=== PATIENT | male | born 1970 | race Caucasian/White ===

== ENCOUNTER 2019-07-02 08:03 | Inpatient (IN) | payer BC, OTHER ==
[2019-07-02 08:31] VITALS: BMI 26.7
--- NOTE | 2019-07-02 09:20 | BHS.RME ---
Substance Use & Tx History - Substance Use History Alcohol Frequency of use: Daily Substance route: Oral Date of Last Use: 07/02/19 - Last Treatment Date of last treatment: 1st time Treatment type: Medical Where was last treatment: Detox Physical/Psych/Mental Status - Behavior General Behavior: Increased activity (restlessness, agitation) Eye Contact: Normal - Cooperativeness Cooperativeness: Cooperative - Thinking Thought Processes: Goal Directed Thought content: Future oriented - Physical Health Problems Is patient presently having any pain?: Yes Does patient presently have any injuries (include location): No Does patient currently have a fever: No Is patient : No (NA) CIWA Nausea/Vomitin Muscle Tremors: 2 Anxiety: 2 Agitation: 2 Paroxysmal Sweats: 1-Minimal Palms Moist Orientation: 0-Oriented Tacttile Disturbances: 2-Mild Itch/Numbness/Burn Auditory Disturbances: 0-None Visual Disturbances: 0-None Headache: 2-Mild CIWA-Ar Total Score: 13 Treatment Recommendation - Level of Care Level of Care: Acute Medical
--- NOTE | 2019-07-02 09:24 | HP ---
CIWA Score Nausea/Vomitin Muscle Tremors: 2 Anxiety: 2 Agitation: 2 Paroxysmal Sweats: 1-Minimal Palms Moist Orientation: 0-Oriented Tacttile Disturbances: 2-Mild Itch/Numbness/Burn Auditory Disturbances: 0-None Visual Disturbances: 0-None Headache: 2-Mild CIWA-Ar Total Score: 13 - Admission Criteria OASAS Guidelines: Admission for Medically Managed Detox: Requires at least one of the followin. CIWA greater than 12 2. Seizures within the past 24 hours 3. Delirium tremens within the past 24 hours 4. Hallucinations within the past 24 hours 5. Acute intervention needed for co occurring medical disorder 6. Acute intervention needed for co occurring psychiatric disorder 7. Severe withdrawal that cannot be handled at a lower level of care (continued vomiting, continued diarrhea, abnormal vital signs) requiring intravenous medication and/or fluids 8. Patient presents the following: CIWA greater than 12 Admission Criteria Met: Admission criteria met Admitting History and Physical - Smoking History Smoking history: Current every day smoker Have you smoked in the past 12 months: Yes Aproximately how many cigarettes per day: 10 Admission ROS [facility] Chief Complaint: I need help Allergies/Adverse Reactions: Allergies Allergy/AdvReac Type Severity Reaction Status Date / Time shellfish derived Allergy Severe Difficulty Verified 07/02/19 08:25 Breathing levofloxacin [From Levaquin] AdvReac Nausea Verified 07/02/19 08:23 History of Present Illness: 49 year old man with alcohol withdrawal presents for detox, this is his first time in detox. He denies seizure, reports blackouts related to alcohol, last event a week ago. Patient was seen in the ED at [facility] early yesterday morning following his doctor's directions for withdrawal sxs and abnormal labs ( elevated LFTs). He had initially presented to his PCP with c/o chest pain. While at [facility], he had EKG, results unknown, he did not receive any benzos, he was referred to [facility] for detox. Discharge summary does not include ED course. He continues to report pin-like pain to the chest, will obtain baseline EKG. Patient has chronic HTN, he reports medication non-adherence, admission BP 158/98 Exam Limitations: No Limitations - Ebola screening Have you traveled outside of the country in the last 21 days: No Have you had contact with anyone from an Ebola affected area: No Have you been sick,other than usual withdrawal symptoms: No Do you have a fever: No - Review of Systems Constitutional: Changes in sleep EENT: reports: No Symptoms Reported Respiratory: reports: Cough (on and off) Cardiac: reports: No Symptoms Reported GI: reports: Nausea, Poor Fluid Intake : reports: No Symptoms Reported Musculoskeletal: reports: Back Pain, Muscle Pain Integumentary: reports: Sweating Neuro: reports: Headache, Numbness, Tingling, Tremors Endocrine: reports: No Symptoms Reported Hematology: reports: No Symptoms Reported Psychiatric: reports: Anxious Other Systems: Reviewed and Negative Patient History - Patient Medical History Hx Anemia: No Hx Asthma: Yes Hx Chronic Obstructive Pulmonary Disease (COPD): No Hx Cancer: No Hx Cardiac Disorders: No Hx Congestive Heart Failure: No Hx Hypertension: Yes Hx Hypercholesterolemia: Yes Hx Pacemaker: No HX Cerebrovascular Accident: No Hx Seizures: No Hx Diabetes: No Hx Gastrointestinal Disorders: No Hx Liver Disease: Yes Hx Genitourinary Disorders: No Hx Sexually Transmitted Disorders: Yes (herpes) Hx Renal Disease (ESRD): No Hx Thyroid Disease: No Hx Human Immunodeficiency Virus (HIV): No Hx Hepatitis C: No Hx Depression: No Hx Suicide Attempt: No Hx Bipolar Disorder: No Hx Schizophrenia: No - Patient Surgical History Past Surgical History: Yes Hx Neurologic Surgery: No Hx Cataract Extraction: No Hx Cardiac Surgery: No Hx Lung Surgery: No Hx Breast Surgery: No Hx Breast Biopsy: No Hx Abdominal Surgery: No Hx Appendectomy: No Hx Cholecystectomy: No Hx Genitourinary Surgery: No Hx Section: No Hx Orthopedic Surgery: Yes (L knee arthroscopic-torn R meniscus) Anesthesia Reaction: No - PPD History Previous Implant?: No Documented Results: Negative w/o proof Implanted On Prior R Admission?: No PPD to be Administered?: Yes - Smoking Cessation Smoking history: Current every day smoker Have you smoked in the past 12 months: Yes Aproximately how many cigarettes per day: 10 Hx Chewing Tobacco Use: No Initiated information on smoking cessation: Yes 'Breaking Loose' booklet given: 07/02/19 - Substances abused Alcohol Other (specify): vodka and beer Substance route: Oral Frequency: Daily Amount used: 1/2 liter vodka/(5) 12oz beers Age of first use: 17 Date of last use: 07/02/19 Admission Physical Exam BHS - Vital Signs Vital Signs: Vital Signs - 24 hr 07/02/19 08:16 Temperature 97.6 F Pulse Rate 77 Respiratory 16 Rate Blood Pressure 158/98 - Physical General Appearance: Yes: Appropriately Dressed HEENTM: Yes: Hearing grossly Normal, Normal ENT Inspection, Normocephalic, Normal Voice, Pharynx Normal Respiratory: Yes: Chest Non-Tender, Lungs Clear, Normal Breath Sounds, No Respiratory Distress, No Accessory Muscle Use Neck: Yes: No masses,lesions,Nodules, Supple Breast: Yes: Breast Exam Deferred Cardiology: Yes: Regular Rhythm, Regular Rate, S1, S2 Abdominal: Yes: Normal Bowel Sounds, Non Tender, Soft Genitourinary: Yes: Within Normal Limits Back: Yes: Normal Inspection Musculoskeletal: Yes: full range of Motion, Gait Steady, Pelvis Stable Extremities: Yes: Tremors Neurological: Yes: field foreman II-XII NML intact, Fully Oriented, Alert, Motor Strength 5/5, Normal Mood/Affect, Normal Response Integumentary: Yes: Moist, Rash (chronic) Lymphatic: Yes: Within Normal Limits - Diagnostic (1) Alcohol dependence, uncomplicated Current Visit: Yes Status: Acute (2) HTN (hypertension) Current Visit: Yes Status: Acute Qualifiers: Hypertension type: essential hypertension Qualified Code(s): I10 - Essential (primary) hypertension (3) Hyperlipidemia Current Visit: Yes Status: Acute Qualifiers: Hyperlipidemia type: other hyperlipidemia Qualified Code(s): E78.49 - Other hyperlipidemia; E78.4 - Other hyperlipidemia (4) Nicotine dependence Current Visit: Yes Status: Acute Qualifiers: Nicotine product type: cigarettes Substance use status: uncomplicated Qualified Code(s): F17.210 - Nicotine dependence, cigarettes, uncomplicated (5) Low back pain Current Visit: Yes Status: Acute Qualifiers: Chronicity: chronic Back pain laterality: bilateral Sciatica presence: without sciatica Qualified Code(s): M54.5 - Low back pain; G89.29 - Other chronic pain Cleared for Admission [facility] - Detox or Rehab [facility] Level of Care: Medically Managed Detox Regimen/Protocol: Librium Claeared for Rehab Admission: No Breathalyzer - Breathalyzer Breathalyzer: 0.21 Urine Drug Screen - Test Device Lot number: [id number] Expiration date: 03/25/21 - Control Is test valid?: Yes - Results Drug screen NEGATIVE: Yes Inpatient Rehab Admission - Rehab Decision to Admit Inpatient rehab admission?: No
[2019-07-02] MEDS ORDERED: NICOTINE POLACRILEX 2 MG GUM BUC PRN (09:45)
[2019-07-02] MEDS ORDERED: MENTHOL/PHENOL 1 EACH UD MM PRN (09:45)
[2019-07-02] MEDS ORDERED: MAG HYDROX/AL HYDROX/SIMETH 30 ML UNIT-DOSE CUP PO PRN (09:45)
[2019-07-02] MEDS ORDERED: METHOCARBAMOL 500 MG TABLET PO PRN (09:45)
[2019-07-02] MEDS ORDERED: MAGNESIUM HYDROX 2400MG/30ML ORAL SUSPENSION 30 ML CUP PO PRN (09:45)
[2019-07-02] MEDS ORDERED: chlordiazePOXIDE HCL 10 MG CAPSULE PO PRN (09:45)
[2019-07-02] MEDS ORDERED: ONDANSETRON *ODT* 4 MG TABLET SL ONE (09:45)
[2019-07-02] MEDS ORDERED: MAGNESIUM CITRATE 300 ML BOTTLE PO PRN (09:45)
[2019-07-02] MEDS ORDERED: ACETAMINOPHEN 325 MG TABLET (FP) PO PRN ×2 (09:45)
[2019-07-02] MEDS ORDERED: BISMUTH SUBSALICYLATE 524 MG/30 ML UD PO PRN (09:45)
[2019-07-02] MEDS ORDERED: IBUPROFEN 400 MG TABLET (FP) PO PRN (09:45)
[2019-07-02] MEDS ORDERED: MOMETASONE FUROATE 220 MCG IH SCH ×2 (10:00→22:00)
[2019-07-02] MEDS: chlordiazePOXIDE HCL 25 MG CAPSULE PO SCH ×2 (13:08→22:55)
[2019-07-02] MEDS: hydrOXYzine PAMOATE 25 MG CAPSULE (FP) PO SCH ×4 (13:09→22:55)
[2019-07-02] MEDS: NICOTINE 14 MG/24 HOURS TOPICAL PATCH TD SCH (13:10)
[2019-07-02] MEDS: PRENATAL VITAMINS W/ FOLIC ACID TABLET (FP) PO SCH (13:11)
[2019-07-02] MEDS: MELATONIN 5 MG TABLETS PO SCH (22:55)
[2019-07-02] MEDS: THIAMINE HCL 100 MG TABLET (FP) PO SCH (22:55)
[2019-07-03] MEDS: hydrOXYzine PAMOATE 25 MG CAPSULE (FP) PO SCH ×5 (05:40→22:37)
[2019-07-03] MEDS: chlordiazePOXIDE HCL 25 MG CAPSULE PO SCH ×3 (05:40→22:36)
--- NOTE | 2019-07-03 09:40 | EKG ---
Test Reason : Blood Pressure : / mmHG Vent. Rate : 071 BPM Atrial Rate : 071 BPM P-R Int : 150 ms QRS Dur : 082 ms QT Int : 404 ms P-R-T Axes : 051 044 075 degrees QTc Int : 439 ms NORMAL SINUS RHYTHM NORMAL ECG NO PREVIOUS ECGS AVAILABLE Confirmed by Kyaw Arceo ([id number]) on 07/03/2019 9:39:59 AM Referred By: CAROLE CHOWDARY Confirmed By:Kyaw Arceo
[2019-07-03] MEDS: NICOTINE 14 MG/24 HOURS TOPICAL PATCH TD SCH (10:23)
[2019-07-03] MEDS: PRENATAL VITAMINS W/ FOLIC ACID TABLET (FP) PO SCH (10:23)
[2019-07-03 10:24] LABS: HEMATOCRIT 45.4 % (35.4-49); HEMOGLOBIN 15.4 GM/dL (11.7-16.9); MCH 33.8 pg (25.7-33.7); MEAN CELL VOLUME 99.5 fl (80-96); MEAN PLT VOLUME 8.1 fl (7.5-11.1); PLATELET COUNT 226 K/MM3 (134-434); RBC 4.56 M/mm3 (4.00-5.60); RDW 12.9 % (11.9-15.9); WHITE BLOOD COUNT 4.6 K/mm3 (4.0-10.0)
[2019-07-03 10:35] LABS: ALBUMIN 3.4 g/dl (3.4-5.0); BILIRUBIN,TOTAL 1.4 mg/dL (0.2-1); BLOOD UREA NITROGEN 17.5 mg/dL (7-18); CALCIUM 9.3 mg/dL (8.5-10.1); CREATININE 0.8 mg/dL (0.55-1.3); POTASSIUM 3.9 mmol/L (3.5-5.1); TOT PROT 6.7 g/dl (6.4-8.2)
--- NOTE | 2019-07-03 12:00 | PN ---
[facility] CIWA - CIWA Score Nausea/Vomitin-No Nausea/No Vomiting Muscle Tremors: 3 Anxiety: 4-Mod. Anxious/Guarded Agitation: 1-Slight > Activity Paroxysmal Sweats: 2 Orientation: 0-Oriented Tacttile Disturbances: 0-None Auditory Disturbances: 0-None Visual Disturbances: 1-Very Mild Sensitivity Headache: 0-None Present CIWA-Ar Total Score: 11 S Progress Note (SOAP) Subjective: 49 years old male admitted on 07/02/19 for alcohol withdrawal sx management treating with librium detox regiment reports trouble move bowel today MOM 30ml x 1 Objective: 07/03/19 12:03 Vital Signs Temperature 96.6 F L 07/03/19 08:54 Pulse Rate 72 07/03/19 08:54 Respiratory Rate 18 07/03/19 08:54 Blood Pressure 132/88 07/03/19 08:54 O2 Sat by Pulse Oximetry (%) Laboratory Last Values WBC 4.6 K/mm3 (4.0-10.0) 07/03/19 07:50 RBC 4.56 M/mm3 (4.00-5.60) 07/03/19 07:50 Hgb 15.4 GM/dL (11.7-16.9) 07/03/19 07:50 Hct 45.4 % (35.4-49) 07/03/19 07:50 MCV 99.5 fl (80-96) H 07/03/19 07:50 MCH 33.8 pg (25.7-33.7) H 07/03/19 07:50 MCHC 34.0 g/dl (32.0-35.9) 07/03/19 07:50 RDW 12.9 % (11.9-15.9) 07/03/19 07:50 Plt Count 226 K/MM3 (134-434) 07/03/19 07:50 MPV 8.1 fl (7.5-11.1) 07/03/19 07:50 Sodium 139 mmol/L (136-145) 07/03/19 07:50 Potassium 3.9 mmol/L (3.5-5.1) 07/03/19 07:50 Chloride 103 mmol/L (98-107) 07/03/19 07:50 Carbon Dioxide 29 mmol/L (21-32) 07/03/19 07:50 Anion Gap 7 MMOL/L (8-16) L 07/03/19 07:50 BUN 17.5 mg/dL (7-18) 07/03/19 07:50 Creatinine 0.8 mg/dL (0.55-1.3) 07/03/19 07:50 Est GFR (CKD-EPI)AfAm 120.72 07/03/19 07:50 Est GFR (CKD-EPI)NonAf 104.16 07/03/19 07:50 Random Glucose 114 mg/dL (74-106) H 07/03/19 07:50 Calcium 9.3 mg/dL (8.5-10.1) 07/03/19 07:50 Total Bilirubin 1.4 mg/dL (0.2-1) H 07/03/19 07:50 AST 85 U/L (15-37) H 07/03/19 07:50 ALT 124 U/L (13-61) H 07/03/19 07:50 Alkaline Phosphatase 64 U/L (45-117) 07/03/19 07:50 Total Protein 6.7 g/dl (6.4-8.2) 07/03/19 07:50 Albumin 3.4 g/dl (3.4-5.0) 07/03/19 07:50 RPR Titer Nonreactive (NONREACTIVE) 07/03/19 07:50 lab noted Assessment: 07/03/19 13:29 alcohol withdrawal Plan: librium regiment
[2019-07-03] MEDS ORDERED: MAGNESIUM HYDROX 2400MG/30ML ORAL SUSPENSION 30 ML CUP PO ONE (12:02)
[2019-07-03] MEDS: MELATONIN 5 MG TABLETS PO SCH (22:37)
[2019-07-03] MEDS: THIAMINE HCL 100 MG TABLET (FP) PO SCH (22:37)
[2019-07-03] MEDS: MOMETASONE FUROATE 220 MCG/IH INHALER IH SCH (22:38)
[2019-07-04] MEDS: hydrOXYzine PAMOATE 25 MG CAPSULE (FP) PO SCH ×5 (05:25→21:49)
[2019-07-04] MEDS: chlordiazePOXIDE 5 MG CAPSULE PO SCH ×3 (05:25→21:49)
[2019-07-04] MEDS: PRENATAL VITAMINS W/ FOLIC ACID TABLET (FP) PO SCH (10:06)
[2019-07-04] MEDS: NICOTINE 14 MG/24 HOURS TOPICAL PATCH TD SCH (10:06)
--- NOTE | 2019-07-04 10:41 | PN ---
[facility] CIWA - CIWA Score Nausea/Vomitin-No Nausea/No Vomiting Muscle Tremors: 3 Anxiety: 3 Agitation: 0-Normal Activity Paroxysmal Sweats: 1-Minimal Palms Moist Orientation: 0-Oriented Tacttile Disturbances: 0-None Auditory Disturbances: 0-None Visual Disturbances: 2-Mild Sensitivity Headache: 0-None Present CIWA-Ar Total Score: 9 S Progress Note (SOAP) Subjective: 49 years old male admitted on 07/02/19 for alcohol withdrawal sx management treating with librium detox regiment difficulty move bowel agrees to take citroma Objective: 07/04/19 10:50 Vital Signs Temperature 98.1 F 07/04/19 08:32 Pulse Rate 69 07/04/19 08:32 Respiratory Rate 18 07/04/19 08:32 Blood Pressure 136/80 07/04/19 08:32 O2 Sat by Pulse Oximetry (%) Laboratory Last Values WBC 4.6 K/mm3 (4.0-10.0) 07/03/19 07:50 RBC 4.56 M/mm3 (4.00-5.60) 07/03/19 07:50 Hgb 15.4 GM/dL (11.7-16.9) 07/03/19 07:50 Hct 45.4 % (35.4-49) 07/03/19 07:50 MCV 99.5 fl (80-96) H 07/03/19 07:50 MCH 33.8 pg (25.7-33.7) H 07/03/19 07:50 MCHC 34.0 g/dl (32.0-35.9) 07/03/19 07:50 RDW 12.9 % (11.9-15.9) 07/03/19 07:50 Plt Count 226 K/MM3 (134-434) 07/03/19 07:50 MPV 8.1 fl (7.5-11.1) 07/03/19 07:50 Sodium 139 mmol/L (136-145) 07/03/19 07:50 Potassium 3.9 mmol/L (3.5-5.1) 07/03/19 07:50 Chloride 103 mmol/L (98-107) 07/03/19 07:50 Carbon Dioxide 29 mmol/L (21-32) 07/03/19 07:50 Anion Gap 7 MMOL/L (8-16) L 07/03/19 07:50 BUN 17.5 mg/dL (7-18) 07/03/19 07:50 Creatinine 0.8 mg/dL (0.55-1.3) 07/03/19 07:50 Est GFR (CKD-EPI)AfAm 120.72 07/03/19 07:50 Est GFR (CKD-EPI)NonAf 104.16 07/03/19 07:50 Random Glucose 114 mg/dL (74-106) H 07/03/19 07:50 Calcium 9.3 mg/dL (8.5-10.1) 07/03/19 07:50 Total Bilirubin 1.4 mg/dL (0.2-1) H 07/03/19 07:50 AST 85 U/L (15-37) H 07/03/19 07:50 ALT 124 U/L (13-61) H 07/03/19 07:50 Alkaline Phosphatase 64 U/L (45-117) 07/03/19 07:50 Total Protein 6.7 g/dl (6.4-8.2) 07/03/19 07:50 Albumin 3.4 g/dl (3.4-5.0) 07/03/19 07:50 RPR Titer Nonreactive (NONREACTIVE) 07/03/19 07:50 lab noted Assessment: 07/04/19 10:50 alcohol withdrawal 07/04/19 10:51 constipation Plan: librium regiment citroma
[2019-07-04] MEDS ORDERED: MAGNESIUM CITRATE 300 ML BOTTLE PO ONE (10:44)
[2019-07-04] MEDS: MOMETASONE FUROATE 220 MCG/IH INHALER IH SCH (21:49)
[2019-07-04] MEDS: MELATONIN 5 MG TABLETS PO SCH (21:49)
[2019-07-04] MEDS: THIAMINE HCL 100 MG TABLET (FP) PO SCH (21:49)
[2019-07-05] MEDS ORDERED: chlordiazePOXIDE HCL 10 MG CAPSULE PO PRN
[2019-07-05] MEDS: hydrOXYzine PAMOATE 25 MG CAPSULE (FP) PO SCH ×5 (05:38→22:07)
[2019-07-05] MEDS: chlordiazePOXIDE HCL 10 MG CAPSULE PO SCH ×3 (05:38→22:06)
[2019-07-05] MEDS: PRENATAL VITAMINS W/ FOLIC ACID TABLET (FP) PO SCH (10:14)
[2019-07-05] MEDS: NICOTINE 14 MG/24 HOURS TOPICAL PATCH TD SCH (10:16)
--- NOTE | 2019-07-05 12:18 | PN ---
S CIWA - CIWA Score Nausea/Vomitin-No Nausea/No Vomiting Muscle Tremors: 3 Anxiety: 1-Mildly Anxious Agitation: 0-Normal Activity Paroxysmal Sweats: 1-Minimal Palms Moist Orientation: 0-Oriented Tacttile Disturbances: 0-None Auditory Disturbances: 0-None Visual Disturbances: 0-None Headache: 0-None Present CIWA-Ar Total Score: 5 BHS Progress Note (SOAP) Subjective: 49 years old male admitted on 07/02/19 for alcohol withdrawal sx management treating with ativan detox regiment feeling better less anxiety slept through the night discuss aftercare with staff Objective: 07/05/19 12:18 Vital Signs Temperature 97.8 F 07/05/19 08:41 Pulse Rate 71 07/05/19 08:41 Respiratory Rate 18 07/05/19 08:41 Blood Pressure 138/94 07/05/19 08:41 O2 Sat by Pulse Oximetry (%) Laboratory Last Values WBC 4.6 K/mm3 (4.0-10.0) 07/03/19 07:50 RBC 4.56 M/mm3 (4.00-5.60) 07/03/19 07:50 Hgb 15.4 GM/dL (11.7-16.9) 07/03/19 07:50 Hct 45.4 % (35.4-49) 07/03/19 07:50 MCV 99.5 fl (80-96) H 07/03/19 07:50 MCH 33.8 pg (25.7-33.7) H 07/03/19 07:50 MCHC 34.0 g/dl (32.0-35.9) 07/03/19 07:50 RDW 12.9 % (11.9-15.9) 07/03/19 07:50 Plt Count 226 K/MM3 (134-434) 07/03/19 07:50 MPV 8.1 fl (7.5-11.1) 07/03/19 07:50 Sodium 139 mmol/L (136-145) 07/03/19 07:50 Potassium 3.9 mmol/L (3.5-5.1) 07/03/19 07:50 Chloride 103 mmol/L (98-107) 07/03/19 07:50 Carbon Dioxide 29 mmol/L (21-32) 07/03/19 07:50 Anion Gap 7 MMOL/L (8-16) L 07/03/19 07:50 BUN 17.5 mg/dL (7-18) 07/03/19 07:50 Creatinine 0.8 mg/dL (0.55-1.3) 07/03/19 07:50 Est GFR (CKD-EPI)AfAm 120.72 07/03/19 07:50 Est GFR (CKD-EPI)NonAf 104.16 07/03/19 07:50 Random Glucose 114 mg/dL (74-106) H 07/03/19 07:50 Calcium 9.3 mg/dL (8.5-10.1) 07/03/19 07:50 Total Bilirubin 1.4 mg/dL (0.2-1) H 07/03/19 07:50 AST 85 U/L (15-37) H 07/03/19 07:50 ALT 124 U/L (13-61) H 07/03/19 07:50 Alkaline Phosphatase 64 U/L (45-117) 07/03/19 07:50 Total Protein 6.7 g/dl (6.4-8.2) 07/03/19 07:50 Albumin 3.4 g/dl (3.4-5.0) 07/03/19 07:50 RPR Titer Nonreactive (NONREACTIVE) 07/03/19 07:50 T.pallidum Ab Interpret Cancelled 07/03/19 07:50 lab noted Assessment: 07/05/19 12:19 alcohol withdrawal Plan: ativan regiment
[2019-07-05] MEDS: MELATONIN 5 MG TABLETS PO SCH (22:06)
[2019-07-05] MEDS: THIAMINE HCL 100 MG TABLET (FP) PO SCH (22:07)
[2019-07-05] MEDS: MOMETASONE FUROATE 220 MCG/IH INHALER IH SCH (22:19)
[2019-07-06] MEDS ORDERED: chlordiazePOXIDE HCL 10 MG CAPSULE PO ONE (05:00)
[2019-07-06] MEDS: hydrOXYzine PAMOATE 25 MG CAPSULE (FP) PO SCH (05:44)
[2019-07-06 06:29] VITALS: PULSE 63; TEMP 97.4
[2019-07-06 06:30] VITALS: BP 137/81
--- NOTE | 2019-07-06 12:23 | DS ---
[facility] Detox Discharge Summary Admission Date: 07/02/19 Discharge Date: 07/06/19 - History Present History: Alcohol Dependence Additional Comments: 49 years old male admitted on 07/02/19 for alcohol withdrawal sx management treating with ativan detox regiment Mr Fairbanks has completed the ativan regiment and is tolerated well alert oriented x 3 cardiac s1s2 regular rate rhythm respiratory clear lung bilaterally on auscultation extremities full range of motion Pertinent Past History: time for discharge 35 minutes - Physical Exam Results Vital Signs: Vital Signs Temperature 97.4 F L 07/06/19 06:28 Pulse Rate 63 07/06/19 06:28 Respiratory Rate 18 07/06/19 06:28 Blood Pressure 137/81 07/06/19 06:28 O2 Sat by Pulse Oximetry (%) Pertinent Admission Physical Exam Findings: alcohol withdrawal Laboratory Last Values WBC 4.6 K/mm3 (4.0-10.0) 07/03/19 07:50 RBC 4.56 M/mm3 (4.00-5.60) 07/03/19 07:50 Hgb 15.4 GM/dL (11.7-16.9) 07/03/19 07:50 Hct 45.4 % (35.4-49) 07/03/19 07:50 MCV 99.5 fl (80-96) H 07/03/19 07:50 MCH 33.8 pg (25.7-33.7) H 07/03/19 07:50 MCHC 34.0 g/dl (32.0-35.9) 07/03/19 07:50 RDW 12.9 % (11.9-15.9) 07/03/19 07:50 Plt Count 226 K/MM3 (134-434) 07/03/19 07:50 MPV 8.1 fl (7.5-11.1) 07/03/19 07:50 Sodium 139 mmol/L (136-145) 07/03/19 07:50 Potassium 3.9 mmol/L (3.5-5.1) 07/03/19 07:50 Chloride 103 mmol/L (98-107) 07/03/19 07:50 Carbon Dioxide 29 mmol/L (21-32) 07/03/19 07:50 Anion Gap 7 MMOL/L (8-16) L 07/03/19 07:50 BUN 17.5 mg/dL (7-18) 07/03/19 07:50 Creatinine 0.8 mg/dL (0.55-1.3) 07/03/19 07:50 Est GFR (CKD-EPI)AfAm 120.72 07/03/19 07:50 Est GFR (CKD-EPI)NonAf 104.16 07/03/19 07:50 Random Glucose 114 mg/dL (74-106) H 07/03/19 07:50 Calcium 9.3 mg/dL (8.5-10.1) 07/03/19 07:50 Total Bilirubin 1.4 mg/dL (0.2-1) H 07/03/19 07:50 AST 85 U/L (15-37) H 07/03/19 07:50 ALT 124 U/L (13-61) H 07/03/19 07:50 Alkaline Phosphatase 64 U/L (45-117) 07/03/19 07:50 Total Protein 6.7 g/dl (6.4-8.2) 07/03/19 07:50 Albumin 3.4 g/dl (3.4-5.0) 07/03/19 07:50 RPR Titer Nonreactive (NONREACTIVE) 07/03/19 07:50 T.pallidum Ab Interpret Cancelled 07/03/19 07:50 Vital Signs Temperature 97.4 F L 07/06/19 06:28 Pulse Rate 63 07/06/19 06:28 Respiratory Rate 18 07/06/19 06:28 Blood Pressure 137/81 07/06/19 06:28 O2 Sat by Pulse Oximetry (%) lab noted - Treatment Hospital Course: Detox Protocol Followed, Detoxed Safely, Responded well, Discharged Condition Good, Rehab Referral Accepted Patient has Accepted a Rehab Referral to: [facility] - Medication Discharge Medications: Ambulatory Orders Mometasone Furoate [Asmanex] 220 mcg IH [id number] 07/02/19 - Diagnosis (1) Alcohol dependence, uncomplicated Status: Acute (2) HTN (hypertension) Status: Chronic Qualifiers: Hypertension type: essential hypertension Qualified Code(s): I10 - Essential (primary) hypertension (3) Hyperlipidemia Status: Chronic Qualifiers: Hyperlipidemia type: pure hypertriglyceridemia Qualified Code(s): E78.1 - Pure hyperglyceridemia (4) Nicotine dependence Status: Acute Qualifiers: Nicotine product type: cigarettes Substance use status: in withdrawal Qualified Code(s): F17.213 - Nicotine dependence, cigarettes, with withdrawal - AMA Did Patient Leave Against Medical Advice: No CIWA Score - CIWA Score Nausea/Vomitin-No Nausea/No Vomiting Muscle Tremors: 2 Anxiety: 1-Mildly Anxious Agitation: 0-Normal Activity Paroxysmal Sweats: No Perspiration Orientation: 0-Oriented Tacttile Disturbances: 0-None Auditory Disturbances: 0-None Visual Disturbances: 0-None Headache: 0-None Present CIWA-Ar Total Score: 3
== END 2019-07-06 09:00 | disposition home or self-care (01) | DRG 897 ==
LOC: YASAS 08:03 → Y3N 10:04
PROVIDERS: ADMIT Allergy & Immunology; ATTEND Allergy & Immunology
PROC: HZ2ZZZZ Detoxification Services for Substance Abuse Treatment (ICD-10-PCS; principal; 2019-07-02)
DX: F10.230 Alcohol dependence with withdrawal, uncomplicated (principal); F17.213 Nicotine dependence, cigarettes, with withdrawal; I10 Essential (primary) hypertension; E78.1 Pure hyperglyceridemia; E78.49 Other hyperlipidemia; K59.00 Constipation, unspecified; M54.5 Low back pain; G89.29 Other chronic pain; Z87.09 Personal history of other diseases of the respiratory system; Z86.19 Personal history of other infectious and parasitic diseases; Z87.19 Personal history of other diseases of the digestive system; Z88.1 Allergy status to other antibiotic agents; Z91.013 Allergy to seafood
CPT/HCPCS: 36415; 80053; 85027; 86593; 93005; 93010; Q0162